=== PATIENT | female | born 1940 | race Caucasian/White ===

== ENCOUNTER 2022-09-18 10:00 | Emergency (ER) | payer MEDICARE, BC, SELFPAY ==
[2022-09-18] VITALS (7 sets, daily range): BP systolic 121–148; BP diastolic 68–83; PULSE 84–100; RESP 15–17; TEMP 37.1–37.6; O2SAT 94–98; BMI 21.4
--- NOTE | 2022-09-18 10:13 | ECG_ITS ---
APPROVED REPORT Exam: Resting ECG HR:107 bpm ECG Measurements Heart Rate 107 AXES MI 175 P 79 QRSd 97 QRS 203 QT 361 T 84 QTc 424 Conclusion SINUS TACHYCARDIA WITH FREQUENT SUPRAVENTRICULAR PREMATURE COMPLEXES LOW QRS VOLTAGE IN EXTREMITY LEADS [QRS DEFLECTION < 0.5 mV IN LIMB LEADS] POSSIBLE RIGHT VENTRICULAR CONDUCTION DELAY [RSR (QR) IN V1/V2] LEFT POSTERIOR FASCICULAR BLOCK [QRS AXIS > 109, INFERIOR Q] ANTEROLATERAL MYOCARDIAL INFARCTION , OF INDETERMINATE AGE [40+ ms Q WAVE IN I/aVL/V3-V6] ABNORMAL ECG UNCONFIRMED REPORT Electronically signed by : Thanh Chris MD 09/18/2022 19:33:52
--- NOTE | 2022-09-18 10:18 | HMH.EDGENADL ---
Discharge Plan Disposition Patient Disposition: Home, Self-Care Referrals Follow up/Referrals: Provider,Referral, [Primary Care Provider] - See instructions Activity Restrictions/Add. Instructions Additional Instructions/Restrictions: Your emergency work-up today did not yield any severe or significant abnormality to warrant further emergency intervention or hospitalization. After your diagnostic tests have been performed it is most likely that you had a viral syndrome secondary to COVID with subsequent dehydration from poor p.o. intake and decreased appetite. Your potassium is very mildly elevated which should be normalized with normal diet. Please return to the emergency department or your primary care doctor as needed. Clinical Impressions Clinical Impression: Acute dehydration, Hypokalemia, Abdominal discomfort, Decrease in appetite, COVID-19 Discharge ED Provider: Christian Rivera General Adult HPI General Chief complaint: Upper Respiratory Infection Stated complaint: Covid+ 2/ loss appetite weakness Time Seen by Provider: 09/18/22 10:18 History of Present Illness HPI narrative: Patient is an 82-year-old female presenting with decreased p.o. intake over the last 2 weeks. She is accompanied by her friend who knows her well and spends a lot of time with her. This patient does not go to the doctor therefore has no known diagnosed medical problems. Her friend states that she normally eats a lot but over the last 2 weeks she has not felt like eating and states that her abdomen has discomfort after eating. She subsequently has had very little to eat over the last 2 weeks and has been increasingly weak. She normally lives at home and takes care of herself. Her friend has been bagging her for the last 3 to 4 days to come into the emergency department. She went to [facility] for 3 days ago where they did a COVID test and she was positive did not do any other interventions including blood work or IV fluids according to her friend. Did not do any abdominal imaging. Patient denies having any respiratory complaints at all during this time. Denies any other viral symptoms. Her only symptom is a little bit of epigastric discomfort and mid abdominal discomfort after eating and decreased p.o. intake. She denies any melena or hematochezia she denies any hematemesis. Denies any fevers or chills urinary symptoms or changes in bowel movements. She states she is exceedingly weak at the moment. Related Data Allergies Allergy/AdvReac Type Severity Reaction Status Date / Time No Known Allergies Allergy Verified 09/18/22 10:19 [facility] Disclaimer: The information contained in this section may have been updated after the patient was seen, as this information can be updated by other users. Social History Smoking Status: Never smoker alcohol intake: never current occupational status: other Travel in the last 8 weeks: None ROS Obtained: Yes All systems reviewed & no additional complaints except as documented Physical Exam General General appearance: alert and in no apparent distress Respiratory Respiratory exam: Present normal lung sounds bilaterally; Absent respiratory distress, wheezes or stridor Cardiovascular Cardiovascular exam: Present regular rate and irregular rhythm Abdominal Exam Abdominal exam: Present soft (Abdomen is soft there is tenderness palpation right upper quadrant midepigastrium as well as periumbilical. No masses felt no rebound or guarding.) Neurological Exam Neurological exam: Present alert and oriented X3 Medical Decision Making Geovani Inquiry Pt receiving controlled substance: No Vital Signs: 09/18/22 10:15 09/18/22 10:10 09/18/22 10:50 Temperature 98.7 F Temperature Source Oral Pulse Rate 100 H 84 Pulse Rate [Right Radial] 90 Respiratory Rate 17 Blood Pressure 143/79 H 146/83 H Blood Pressure [Right Arm] 143/79 H Blood Pressure Mean 91 104 Blood Pressure M
--- NOTE | 2022-09-18 10:23 | PC.NURSE ---
ER AT BEDSIDE
--- NOTE | 2022-09-18 10:25 | CT_ITS ---
FINAL REPORT TECHNIQUE: After the administration of intravenous contrast, axial images were obtained through the abdomen and pelvis by computed tomography. This study was performed with technique to keep radiation doses as low as reasonably achievable, (ALARA). Individualized dose reduction techniques using automated exposure control or adjustment of the MA and/or KV according to the patient's size were employed. CLINICAL HISTORY: mid abd pain, intolerance of po (never goes to dr) FINDINGS: Abdomen: The lung bases demonstrate mild bibasilar atelectasis or scarring. Pectus excavatum deformity is noted. The liver is normal in size and attenuation. There is mild, nonspecific gallbladder wall thickening. The spleen is unremarkable. The adrenals are normal. The pancreas is unremarkable. The kidneys enhance appropriately. There are multiple, bilateral renal cysts. The aorta is normal in caliber. There is no free fluid or adenopathy. Fluid is seen at the level of the umbilicus of uncertain significance. Findings could represent cyst. Pelvis: The appendix is normal. There are several small uterine calcifications likely representing small fibroids. The urinary bladder is unremarkable. There is no free fluid or adenopathy. IMPRESSION: Mild, nonspecific gallbladder wall thickening. Fluid at the level of the umbilicus which could represent a cyst. Uterine calcifications likely representing fibroids. Reviewed, Interpreted and Dictated by Collins Pan III, MD Transcribed by Yoselin Vogt Authenticated and [facility]
[2022-09-18 10:26] LABS: Chloride 99 mmol/L (98-107); Potassium 3.4 mmoL/L (3.5-5.1); Sodium 138 mmol/L (136-145)
[2022-09-18 10:29] LABS: Alanine Aminotransferase 38 U/L (12-78); Albumin Level 4.3 g/dl (3.5-5.0); Albumin/Globulin Ratio 1.4 (1.1-1.8); Alkaline Phosphatase 75 U/L (38-126); Anion Gap 9.4 mEq/L (5-15); Aspartate Amino Transferase 53 U/L (14-36); Bilirubin,Total 0.8 mg/dl (0.2-1.3); Blood Urea Nitrogen 20 mg/dl (7-17); Calcium 8.1 mg/dl (8.4-10.2); Carbon Dioxide 33 mmol/L (22.0-30.0); Creatinine Clearance Estimated 40 mL/min (50-200); Estimated Glomerular Filt Rate 81 ml/min (>60); GFR (African American) 97 ML/MIN (>60); Globulin 3.1 g/dL (1.3-3.2); Glucose 113 mg/dl (74-100); Total Protein,Serum 7.4 g/dl (6.3-8.2)
[2022-09-18 10:31] LABS: Basophils # 0.1 K/mm3 (0-0.2); Basophils % 0.8 % (0.1-2.0); Eosinophils % 0.2 % (0.1-12.0); Hemoglobin 17.4 g/dL (12.2-16.2); Lymphocytes # 0.8 K/mm3 (0.7-4.5); Lymphocytes % 14.2 % (10-50); Mean Corpuscular HGB Conc 32.3 g/dL (31.8-35.4); Mean Corpuscular Hemoglobin 29.1 pg (27.0-31.2); Mean Corpuscular Volume 90.1 fl (81-99); Mean Platelet Volume 9.3 fl (7.4-10.4); Monocytes # 0.5 K/mm3 (0.1-1.0); Neutrophils # 4.3 K/mm3 (1.8-7.8); Neutrophils % 75.8 % (37.0-80.0); Platelet Count 144 K/mm3 (142-424); Red Blood Count 5.99 M/mm3 (4.20-5.40); Red Cell Distribution Width 13.1 % (11.5-17.5); White Blood Count 5.7 K/mm3 (4.8-10.8)
[2022-09-18 10:41] LABS: Creatine Kinase 74 U/L (30-135); Lipase 146 U/L (23-300); Phosphorous 3.6 mg/dl (2.5-4.5)
[2022-09-18 10:42] LABS: Magnesium 2.5 mg/dl (1.6-2.3)
--- NOTE | 2022-09-18 10:45 | PC.NURSE ---
rounded on pt she was cold,gave warm blanket family at bedside
--- NOTE | 2022-09-18 10:58 | PC.NURSE ---
pt at ct via wheelchair
--- NOTE | 2022-09-18 11:06 | PC.NURSE ---
pt arrived to room from ct
[2022-09-18 11:11] LABS: Lactic Acid 1.2 mmol/L (0.7-2.1)
--- NOTE | 2022-09-18 12:43 | PC.NURSE ---
pt needed assisting walking to the restroom, did fine no complaints family at bedside
--- NOTE | 2022-09-18 13:02 | PC.NURSE ---
rounded on pt, drink given to family
[2022-09-19 13:24] LABS: Prealbumin 9 mg/dL (9-32)
== END 2022-09-18 13:23 | disposition home or self-care (01) ==
PROVIDERS: Emergency Provider Student in an Organized Health Care Education/Training Program
DX: U07.1 COVID-19 (principal); E86.0 Dehydration; E87.6 Hypokalemia; R10.9 Unspecified abdominal pain; R63.8 Other symptoms and signs concerning food and fluid intake
CPT/HCPCS: 74177; 80053; 82550; 83605; 83690; 83735; 84100; 84134; 85025; 93005; 96361; 96374; 99285; J2405; Q9967

== ENCOUNTER 2022-09-19 23:12 | Observation (INO) | payer MEDICARE, BC, SELFPAY ==
[2022-09-19 23:14] VITALS: BP 161/91; PULSE 94; RESP 16; TEMP 37.1; O2SAT 95; BMI 21.4
--- NOTE | 2022-09-19 23:40 | PC.NURSE ---
Dr. White at BS
[2022-09-19 23:41] VITALS: BP 156/94; PULSE 100; O2SAT 94
[2022-09-20] VITALS (11 sets, daily range): BP systolic 120–161; BP diastolic 67–81; PULSE 71–106; RESP 16–18; TEMP 36.9–37.3; O2SAT 90–95; BMI 21.7
[2022-09-20 00:28] LABS: Basophils % 0.6 % (0.1-2.0); Eosinophils % 0.6 % (0.1-12.0); Hematocrit 47.2 % (37.0-47.0); Hemoglobin 15.9 g/dL (12.2-16.2); Lymphocytes # 0.6 K/mm3 (0.7-4.5); Mean Corpuscular HGB Conc 33.6 g/dL (31.8-35.4); Mean Corpuscular Hemoglobin 29.3 pg (27.0-31.2); Mean Corpuscular Volume 87.3 fl (81-99); Mean Platelet Volume 9.9 fl (7.4-10.4); Monocytes # 0.6 K/mm3 (0.1-1.0); Monocytes % 9.7 % (1.7-9.3); Neutrophils # 5.1 K/mm3 (1.8-7.8); Neutrophils % 80.2 % (37.0-80.0); Platelet Count 117 K/mm3 (142-424); Red Blood Count 5.41 M/mm3 (4.20-5.40); Red Cell Distribution Width 13.2 % (11.5-17.5); White Blood Count 6.3 K/mm3 (4.8-10.8)
[2022-09-20 00:34] LABS: Alanine Aminotransferase 34 U/L (12-78); Albumin Level 3.7 g/dl (3.5-5.0); Albumin/Globulin Ratio 1.3 (1.1-1.8); Alkaline Phosphatase 72 U/L (38-126); Anion Gap 6.5 mEq/L (5-15); Aspartate Amino Transferase 51 U/L (14-36); Blood Urea Nitrogen 28 mg/dl (7-17); Calcium 8.1 mg/dl (8.4-10.2); Carbon Dioxide 31 mmol/L (22.0-30.0); Chloride 102 mmol/L (98-107); Creatinine Clearance Estimated 40 mL/min (50-200); Estimated Glomerular Filt Rate 69 ml/min (>60); GFR (African American) 84 ML/MIN (>60); Globulin 2.8 g/dL (1.3-3.2); Glucose 120 mg/dl (74-100); Potassium 3.5 mmoL/L (3.5-5.1); Sodium 136 mmol/L (136-145); Total Protein,Serum 6.5 g/dl (6.3-8.2)
[2022-09-20 01:06] LABS: Thyroid Stimulating Hormone 0.29 uIU/mL (0.465-4.68)
--- NOTE | 2022-09-20 01:15 | XR_ITS ---
PROCEDURE INFORMATION: Exam: XR Chest Exam date and time: 09/20/2022 1:46 AM Age: 82 years old Clinical indication: Other: Weakness; Additional info: Covid 3weeks ago, continued symptoms, weakness TECHNIQUE: Imaging protocol: Radiologic exam of the chest. Views: 1 view. COMPARISON: CT ABDOMEN PELVIS W CON 09/18/2022 10:54 AM FINDINGS: Lungs: Linear and patchy opacities in the right lower lobe may represent atelectasis, or pneumonia. Additionally, bibasilar opacities may represent atelectasis, inflammation, or infection. Slight increased pulmonary vascularity and increased interstitial opacities. Findings are nonspecific and may represent subtle pulmonary edema. Atypical infection can give a similar appearance. Pleural spaces: Small amount of fluid within the right transverse fissure can not be excluded. Small layering pleural effusion can not be excluded. Heart/Mediastinum: The cardiac silhouette is enlarged. The mediastinal silhouette is unremarkable. Vasculature: The thoracic aorta is tortuous and atherosclerotic. Bones/joints: There are degenerative changes of the spine. IMPRESSION: 1. Linear and patchy opacities in the lower lobes, right worse than left concerning for atelectasis, inflammation, or pneumonia. Suspected fluid in the right minor fissure versus linear consolidation. Continued attention on follow-up is recommended. 2. Cardiomegaly.
--- NOTE | 2022-09-20 01:27 | HMH.EDGENADL ---
Discharge Plan Disposition Chief Complaint: Weakness Prescriptions Prescriptions: No Action No Known Home Medications Referrals Follow up/Referrals: Provider,MD Lucian [Primary Care Provider] - See instructions Discharge ED Provider: Kaveh White General Adult HPI General Chief complaint: Weakness Stated complaint: weakness,just sick Time Seen by Provider: 09/20/22 00:00 Mode of Arrival: Wheelchair Source of Information: Patient Limitations: No Limitations Description of Symptoms (Recalled from ER Triage Doc. by RN): Pt reports decreased PO intake and feeling unwell for over a week. Pt was evaluated here on 09/17 for same complaints. She denies fevers, N/V/D, abd pain, chest pain, SOA, cough or dizziness. History of Present Illness HPI narrative: Patient presents for evaluation of generalized weakness. Patient seen previously in this hospital for same complaints with negative work-up at that time and deemed appropriate for discharge as she felt improved after IV fluids. Patient has only had 2 green beans and half a cracker since that time as she states everything tastes horribly. Patient reports she is not eating and feels generally weak. She does not regularly see a doctor and has no diagnosed medical conditions. Previous work-up negative. Related Data Home Medications Medication Instructions Recorded Confirmed No Known Home Medications 09/19/22 09/19/22 Allergies Allergy/AdvReac Type Severity Reaction Status Date / Time No Known Allergies Allergy Verified 09/18/22 10:19 [facility] Disclaimer: The information contained in this section may have been updated after the patient was seen, as this information can be updated by other users. Social History (Updated 09/18/22 @ 13:06 by Micki Rivera MD) Smoking Status: Never smoker alcohol intake: never current occupational status: other Travel in the last 8 weeks: None ROS Obtained: Yes Systems reviewed as appropriate & no additional complaints except as documented Physical Exam General General appearance: alert and in no apparent distress Head Head exam: atraumatic and normocephalic Respiratory Respiratory exam: Present normal lung sounds bilaterally Cardiovascular Cardiovascular exam: Present regular rate and normal rhythm Neurological Exam Neurological exam: Present alert and oriented X3 Medical Decision Making Geovani Inquiry Pt receiving controlled substance: No Vital Signs: 09/19/22 23:14 09/20/22 01:34 09/19/22 23:41 Temperature 98.7 F Temperature Source Oral Pulse Rate 100 H Pulse Rate [Right Radial] 94 H Respiratory Rate 16 Blood Pressure 156/94 H Blood Pressure [Right Arm] 161/91 H Blood Pressure Mean [Right Arm] 114 Blood Pressure Source [Right Arm] Automatic Cuff Blood Pressure Position [Right Arm] Supine 02 Sat by Pulse Oximetry 95 94 L Oxygen Delivery Method Room Air Room Air Room Air 09/20/22 00:00 09/20/22 00:30 09/20/22 01:00 Temperature Temperature Source Pulse Rate 86 81 82 Pulse Rate [Right Radial] Respiratory Rate Blood Pressure 158/81 H 152/72 H 139/76 Blood Pressure [Right Arm] Blood Pressure Mean [Right Arm] Blood Pressure Source [Right Arm] Blood Pressure Position [Right Arm] 02 Sat by Pulse Oximetry 94 L 93 L 92 L Oxygen Delivery Method Room Air Room Air Room Air 09/20/22 01:30 Temperature Temperature Source Pulse Rate 106 H Pulse Rate [Right Radial] Respiratory Rate Blood Pressure 161/72 H Blood Pressure [Right Arm] Blood Pressure Mean [Right Arm] Blood Pressure Source [Right Arm] Blood Pressure Position [Right Arm] 02 Sat by Pulse Oximetry 95 Oxygen Delivery Method Room Air Lab Data Lab Results 09/19/22 00:17: WBC 6.3, RBC 5.41 H, Hgb 15.9, Hct 47.2 H, MCV 87.3, MCH 29.3, MCHC 33.6, RDW 13.2, Plt Count 117 L, MPV 9.9, Neut % (Auto) 80.2 H, Lymph % (Auto) 9.0 L, [place] % (Auto) 9.7 H, Eos % (Auto)
[2022-09-20 02:24] LABS: Influenza A, PCR Not Detected (NotDetected); Influenza B, PCR Not Detected (NotDetected)
--- NOTE | 2022-09-20 02:42 | PC.NURSE ---
Pt up to bathroom per 2 person assist and with use of wheelchair
[2022-09-20 02:43] LABS: Microscopic, Urine URINE MICROSCOPIC (MICROSCOPIC)
--- NOTE | 2022-09-20 02:43 | PC.NURSE ---
Hospitalist, Emiliano, at BS
--- NOTE | 2022-09-20 02:44 | PC.NURSE ---
mail handlers supervisor called for bed assignment
[2022-09-20 02:47] LABS: Appearance,Urine CLEAR (Clear); Blood, Urine 1+ (Negative); Color,Urine AMBER (Yellow); Glucose,Urine (UA) Negative (Negative); Ketones,Urine 2+ (Negative); Leukocyte Esterase,Urine Negative (Negative); Nitrate,Urine Negative (Negative); Protein,Urine 2+ (Negative); Specific Gravity, Urine >= 1.030 (1.005-1.030)
[2022-09-20 02:47] LABS: Coronavirus 19, PCR Detected (NotDetected)
--- NOTE | 2022-09-20 02:48 | EXP.HP ---
History of Present Illness *Admission Date: 09/20/22 *Reason for visit:: Weakness, poor oral intake, cough *History of present illness: Ms. Garvey is a 82-year-old female with no past medical history and not on any prescription medications. She presents to [facility] on 09/20 due to continued weakness, inability to eat and cough following covid that was diagnosed 3 weeks ago. She was seen previously in the ER with the same symptoms on 09/17 and sent home after receiving iv fluids, she reports that she has continued to become weak and has had no significant oral intake, she lives alone and is brought in by a friend. In the ER, CBC and CMP were unremarkable. Cxray was concerning per ER physician for a right lobe infiltrate. She was given Rocephin and Azithromycin. The patient will be admitted with CAP and Failure to thrive. She was started on antibiotics and PT/OT will be consulted to see. The plan of care was discussed with the patient and friend at bedside. Both verbalized understanding and agreement with the plan of care. [facility] Disclaimer: The information contained in this section may have been updated after the patient was seen, as this information can be updated by other users. Medical History (Updated 09/20/22 @ 11:16 by Aung Burns MD) Cataracts, bilateral COVID-19 Surgical History (Updated 09/20/22 @ 04:28 by Anika Mckeon RN) Cornea replaced by transplant Social History (Updated 09/20/22 @ 04:28 by Anika Mckeon RN) Smoking Status: Never smoker alcohol intake: never current occupational status: retired and other Travel in the last 8 weeks: None adopted: No caregiver/support person: Yes (TONNY LEWIS) foster care: No household members: none housing: house lives independently: Yes marital status: single number of children: 0 number of grandchildren: 0 education level: high school service: No assisted: No current occupational exposures/hazards: No pets and animals: No leisure activities: reading sexually active: No Review of Systems Review of Systems Review of systems:: pertinent systems reviewed and negative unless documented below Constitutional Constitutional: Reports fatigue and Reports weakness Eyes Eyes: Reports system reviewed and no additional complaints, except as documented ENT Ears, Nose, Mouth, and Throat: Reports system reviewed and no additional complaints, except as documented *Cardiovascular Cardiovascular: Reports system reviewed and no additional complaints, except as documented *Respiratory Respiratory: Reports chest congestion and Reports cough *Gastrointestinal Gastrointestinal: Reports early satiety *Genitourinary Genitourinary: Reports system reviewed and no additional complaints, except as documented *Musculoskeletal Musculoskeletal: Reports system reviewed and no additional complaints, except as documented Integumentary/Breasts Skin/Breast: Reports system reviewed and no additional complaints, except as documented *Neurologic Neurologic: Reports system reviewed and no additional complaints, except as documented and Reports weakness Psychiatric Psychiatric: Reports system reviewed and no additional complaints, except as documented Endocrine Endocrine: Reports fatigue Hematologic/Lymphatic Hematologic/Lymphatic: Reports system reviewed and no additional complaints, except as documented Allergic/Immunologic Allergic/Immunologic: Reports system reviewed and no additional complaints, except as documented Meds Home Medications and Allergies Home Medications Medication Instructions Recorded Confirmed Type No Known Home Medications 09/19/22 09/19/22 History New Prescriptions to Start Prescriptions: Allergies Allergy/AdvReac Type Severity Reaction Status Date / Time No Known Allergies Allergy Verified 09/18/22 10:19 Exam Data for Last 24 hours Vital signs and L
[2022-09-20 03:03] LABS: Bilirubin,Urine 2+ (Negative)
[2022-09-20 03:04] LABS: Bacteria,Urine 1+ /lpf; WBC,Urine Occasional #/hpf (0-3)
--- NOTE | 2022-09-20 03:14 | PC.NURSE ---
Report called to Lelo GARCIA on 2nd floor
--- NOTE | 2022-09-20 03:41 | PC.NURSE ---
RECEIVED PHONE REPORT FROM ISMAEL Chakraborty RN/ED AT 0310. PATIENT ARRIVED TO THE FLOOR AT 0340 AND ADMITTED TO NEGATIVE PRESSURE ROOM FOR COVID +. DIAGNOSIS FAILURE TO THRIVE/COVID PNEUMONIA.
--- NOTE | 2022-09-20 03:41 | PC.NURSE ---
Pt arrived to floor via stretcher at this time
--- NOTE | 2022-09-20 05:32 | PC.NURSE ---
PATIENT RESTING IN BED AT THIS TIME. DENIES PAIN. NO N/V SINCE ADMISSION. OCASSIONAL DRY COUGH NOTED. REPORTS SOME SOA ON EXERTION. HAS LITTLE TO NO APPETITE. HAS LOST MOST OF SMELL AND TASTE.
--- NOTE | 2022-09-20 07:27 | PC.NURSE ---
I ambulated pt to Bathroom. She was a stand by assist. complains of generalized weakness, but gait was steady. Denies any SOA. reports poor appetite and general malaise.
[2022-09-20 08:49] LABS: MANUAL DIFFERENTIAL MANUAL DIFFERENTIAL (MANUAL DIFF)
[2022-09-20 08:52] LABS: Basophils % 0.5 % (0.1-2.0); Eosinophils % 0.3 % (0.1-12.0); Hematocrit 43.1 % (37.0-47.0); Hemoglobin 14.3 g/dL (12.2-16.2); Lymphocytes # 0.4 K/mm3 (0.7-4.5); Lymphocytes % 9.6 % (10-50); Mean Corpuscular HGB Conc 33.2 g/dL (31.8-35.4); Mean Corpuscular Hemoglobin 28.9 pg (27.0-31.2); Mean Platelet Volume 10.2 fl (7.4-10.4); Monocytes # 0.4 K/mm3 (0.1-1.0); Monocytes % 8.9 % (1.7-9.3); Neutrophils # 3.2 K/mm3 (1.8-7.8); Neutrophils % 80.7 % (37.0-80.0); Platelet Count 113 K/mm3 (142-424); Red Blood Count 4.96 M/mm3 (4.20-5.40); Red Cell Distribution Width 13.1 % (11.5-17.5)
[2022-09-20 08:59] LABS: Chloride 107 mmol/L (98-107); Lymphocytes % 5 % (10-50); Monocytes % 3 % (2-9); Neutrophils % 92 % (42-76); Platelet Estimate Slight Decrease; Potassium 3.3 mmoL/L (3.5-5.1); RBC Morphology Normal; Sodium 138 mmol/L (136-145); Total Cells Counted 100
[2022-09-20 09:01] LABS: Blood Urea Nitrogen 25 mg/dl (7-17); Creatinine Clearance Estimated 41 mL/min (50-200); Estimated Glomerular Filt Rate 96 ml/min (>60); GFR (African American) 116 ML/MIN (>60)
[2022-09-20 09:02] LABS: Anion Gap 7.3 mEq/L (5-15); Calcium 7.2 mg/dl (8.4-10.2); Carbon Dioxide 27 mmol/L (22.0-30.0); Glucose 154 mg/dl (74-100)
--- NOTE | 2022-09-20 12:37 | PC.NURSE ---
encouraged pt to cough to produce sputum. pt denies any cough
--- NOTE | 2022-09-20 13:32 | HMH.PTEV ---
Physical Therapy Evaluation Rehab PT IP Evaluation Start: 09/20/22 02:48 Freq: ONCE Status: Active Protocol: Document 09/20/22 13:13 PDESEROUX (Rec: 09/20/22 13:32 PDESEROUX [id number]) Subjective/History History History Pt. is a 82 year old female who presents to [facility] 2nd floor Inpatient on the morning of 09/20/22 w/ c/o acute onset and constant mobility deficits secondary to increased reports of weakness . Pt. reports being diagnosed w/ COVID 3 weeks ago where, in the meantime, vocalized having an increased loss of appetite within those 3 weeks that led to the complaint of weakness causing impaired mobility. Pt.'s niece was present in room at the time of the initial evaluation. Pt.'s niece vocalized helping pt. at home secondary to weakness and reports being able to live w/ pt. to provide care PRN. Pt. reports IND. w/ ADLs prior to admittance to [facility]. Pt . reports previously living alone in her trailer. Pt. denies using any durable medical equipment w/ ADLs, prior to admittance. PMH includes bilateral cataracts and COVID. Subjective Subjective Pt. presents to [facility] 2nd floor Inpatient for generalized weakness secondary to COVID 3 weeks ago. Upon entry to pt.'s room after vocalized consent, pt. was found sitting upright in chair w/ niece seated upright in chair adjacent to pt. Pt. was left seated upright in chair adjacent to niece w/ call light in reach. Rehab PT IP Eval Objective Appearance Patient Behavior Appropriate,Cooperative, Anxious,Fatigued Patient Orientation Person,Place,Name Difficulty following instructions none Speech Pattern
--- NOTE | 2022-09-20 13:43 | EXP.DC.SUM ---
General Admission date:: 09/20/22 Discharge date: 09/20/22 HPI HPI HPI: Ms. Garvey is a 82-year-old female with no past medical history and not on any prescription medications. She presents to [facility] on 09/20 due to continued weakness, inability to eat and cough following covid that was diagnosed 3 weeks ago. She was seen previously in the ER with the same symptoms on 09/17 and sent home after receiving iv fluids, she reports that she has continued to become weak and has had no significant oral intake, she lives alone and is brought in by a friend. In the ER, CBC and CMP were unremarkable. Cxray was concerning per ER physician for a right lobe infiltrate. She was given Rocephin and Azithromycin. The patient will be admitted with CAP and Failure to thrive. She was started on antibiotics and PT/OT will be consulted to see. The plan of care was discussed with the patient and friend at bedside. Both verbalized understanding and agreement with the plan of care. Hospital Course Hospital Course Hospital Course: 82-year-old female with no past medical history, not on any prescription medications presents with increasing fatigue, weakness, poor oral intake and cough since being diagnosed with covid 3 weeks ago. Chest imaging concerning for pneumonia. Admitted for further management. Problems addressed as follows: - Covid Pneumonia Originally positive for COVID 3 weeks ago. Still testing positive however appears fairly asymptomatic other than fatigue. Cxray obtained in the ER with findings of consolidation. Started empirically on Rocephin and azithromycin. Tolerated well. Had no white cell count. No fever. No oxygen requirement during admission. Transition to oral antibiotics to complete empiric short course for pneumonia. Tolerating improved p.o. intake by morning. PT evaluated and patient is independent and safe to go home with niece. Sputum culture still pending at time of discharge. - Failure to thrive Reports food tastes horrible since covid. We will improved p.o. intake after admission. Tolerated a quarter of her breakfast and about half her lunch tray. Drinking well. Has not had a bowel movement in 2 to 3 days, given a dose of MiraLAX prior to discharge. Denies any nausea or vomiting. Evaluated by therapy as above. Stable for discharge home with her niece. No assistive devices needed. Patient also noted to have some thrombocytopenia and hypokalemia.? Potassium replaced IV while admitted. Would benefit from repeat labs to monitor thrombocytopenia. Appears stable during admission. No active signs of bleeding Stable for discharge home with family, recommend reevaluation in 1 to 2 weeks with PCP. Exam Data for Last 24 hours Vital signs and Labs for Last 24 Hours: Temp Pulse Resp BP Pulse Ox 99.1 F 80 18 120/76 93 L 09/20/22 12:00 09/20/22 12:00 09/20/22 12:00 09/20/22 12:00 09/20/22 12:00 Laboratory Results - last 24 hr 09/19/22 00:17: WBC 6.3, RBC 5.41 H, Hgb 15.9, Hct 47.2 H, MCV 87.3, MCH 29.3, MCHC 33.6, RDW 13.2, Plt Count 117 L, MPV 9.9, Neut % (Auto) 80.2 H, Lymph % (Auto) 9.0 L, [place] % (Auto) 9.7 H, Eos % (Auto) 0.6, Baso % (Auto) 0.6, Neut # (Auto) 5.1, Lymph # (Auto) 0.6 L, [place] # (Auto) 0.6, Eos # (Auto) 0.0, Baso # (Auto) 0.0 09/19/22 00:17: Sodium 136, Potassium 3.5, Chloride 102, Carbon Dioxide 31 H, Anion Gap 6.5, BUN 28 H D, Creatinine 0.80, Estimated Creat Clear 40, Estimated GFR 69, Est GFR ( Amer) 84, Glucose 120 H, Calcium 8.1 L, Total Bilirubin 1.0, AST 51 H, ALT 34, Alkaline Phosphatase 72, Total Protein 6.5, Albumin 3.7 D, Globulin 2.8, Albumin/Globulin Ratio 1.3, TSH 0.29 L 09/19/22 02:40: Urine Color Ne, Urine Appearance Clear, Urine pH 6.0, Ur Specific [place] >= 1.030, Urine Protein 2+, Urine Glucose (UA) Negative, Urine Ketones 2+, Urine Blood 1+, Urine Nitrate Negative, Urine Bilirubin 2+ A, Urine Urobilinogen 2.0, Ur Leukocyte Esterase N
--- NOTE | 2022-09-20 14:08 | HMH.PHAINT1 ---
Pharmacy Intervention Comments: DISCHARGE MEDICATION COUNSELING PROVIDED. DISCUSSED THE FOLLOWING NEW MEDICATIONS: -AZITHROMYCIN (ANTIBIOTIC, DAILY, TAKE WITH FOOD, N/V/D POSSIBLE) -CEFDINIR (ANTIBIOTIC, TWICE DAILY, TAKE WITH FOOD, MAY CAUSE N/V/D) -ZOFRAN (FOR N/V, EVERY 8 HOURS NEEDED, ODT FORM SO PLACE ON TONGUE AND LET DISSOLVE, HEADACHE AND CONSTIPATION POSSIBLE) PATIENT VERBALIZED NO QUESTIONS AT THIS TIME.
[2022-09-21 07:19] LABS: Prealbumin 8 mg/dL (9-32)
== END 2022-09-20 15:30 | disposition home or self-care (01) ==
LOC: ER 09-20 00:25 → 2ND 09-20 04:01
PROVIDERS: Admitting Provider Internal Medicine Adolescent Medicine; Emergency Provider Emergency Medicine; Visit Provider Internal Medicine Adolescent Medicine
DX: U07.1 COVID-19 (principal); J12.82 Pneumonia due to coronavirus disease 2019; E87.6 Hypokalemia; D69.6 Thrombocytopenia, unspecified; Z79.899 Other long term (current) drug therapy
CPT/HCPCS: G0378; 36415; 71045; 80048; 80053; 81001; 84134; 84443; 85007; 85014; 85018; 85025; 85048; 85049; 97161; 99285; C9803; J0456; J0696; J2405; U0003; U0005

== ENCOUNTER 2022-09-21 12:55 | Observation (INO) | payer MEDICARE, BC, SELFPAY ==
[2022-09-21] VITALS (9 sets, daily range): BP systolic 109–137; BP diastolic 66–77; PULSE 64–82; RESP 16–20; TEMP 36.4–37; O2SAT 90–94; BMI 21.4; BMI 21.9
--- NOTE | 2022-09-21 13:09 | PC.NURSE ---
Warm blanket provided.
--- NOTE | 2022-09-21 13:47 | PC.NURSE ---
PREETI ESPAÑA at
--- NOTE | 2022-09-21 13:54 | XR_ITS ---
PROCEDURE INFORMATION: Exam: XR Chest Exam date and time: 09/21/2022 1:57 PM Age: 82 years old Clinical indication: Condition or disease; Other: Patient discharged within two days from this facility after having pneumonia. Patient HX: Patient discharged 2 days ago after having pneumonia. Not eating or drinking. ; Additional info: Chest pain TECHNIQUE: Imaging protocol: Radiologic exam of the chest. Views: 2 views. COMPARISON: CR XR CHEST PORTABLE 09/20/2022 1:46 AM FINDINGS: Lungs: Patchy interstitial and alveolar airspace disease within the right lung and in the left mid lung and left lung base. Minimal change overall. Likely infectious. Pleural spaces: Unremarkable. No pleural effusion. No pneumothorax. Heart/Mediastinum: Unremarkable. No cardiomegaly. Bones/joints: Unremarkable. IMPRESSION: Patchy interstitial and alveolar airspace disease within the right lung and in the left mid lung and left lung base. Minimal change overall. Likely infectious.
--- NOTE | 2022-09-21 13:55 | HMH.EDGENADL ---
Discharge Plan Disposition Patient Disposition: Admitted as Observation Condition: Fair Chief Complaint: Nausea/Vomiting/Diarrhea Prescriptions Prescriptions: No Action ondansetron 4 mg tablet,disintegrating 4 mg PO Q8H PRN (Reason: nausea and vomiting) 3 Days Qty: 9 0RF cefdinir 300 mg capsule 300 mg PO BID 5 Days Qty: 10 0RF azithromycin 250 mg tablet 250 mg PO DAILY 4 Days Qty: 4 0RF Clinical Impressions Clinical Impression: Pneumonia, Nausea & vomiting, Weakness Instructions Patient Instructions: DI for Diarrhea and Traveler's Diarrhea -- Adult, DI for Diarrhea and Traveler's Diarrhea -- Child, DI for Nausea -- Adult, DI for Nausea -- Child Discharge ED Provider: Raymundo Lugo General Adult HPI General Chief complaint: Nausea/Vomiting/Diarrhea Stated complaint: nausea, weakness, not eating Time Seen by Provider: 09/21/22 13:40 Mode of Arrival: Wheelchair Source of Information: Patient and Relative Limitations: No Limitations Description of Symptoms (Recalled from ER Triage Doc. by RN): Patient discharged yesterday am w/COVID (x 3 wks) and pneumonia. Pt placed on Cefdinir and Azithromycin. Pt tolerated PO yesterday am prior to discharge and when she got home she was able to tolerate PO until last night, n/v returned. 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 Denies pain. History of Present Illness HPI narrative: History obtained from patient and niece. She says she was just discharged from the hospital yesterday, diagnosed with pneumonia. States that she felt so much better when she awakened yesterday morning but then after going home has not been able to eat or drink. She took Zofran without improvement. She is weak and not able to ambulate on her own. She has not fallen. Her urine is dark and she is urinating less than usual. She feels like she needs something to build me back up . Denies any pain. Denies fever. Denies shortness of breath. Denies cough. Denies diarrhea. Patient lives by herself, but has been staying with her niece since she got ill. She does not have a primary care provider, she has no significant medical problems. Related Data Previous Rx's Medication Instructions Recorded azithromycin 250 mg tablet 250 mg PO DAILY 4 days #4 tabs 09/20/22 cefdinir 300 mg capsule 300 mg PO BID 5 days #10 caps 09/20/22 ondansetron 4 mg disintegrating 4 mg PO Q8H PRN nausea and 09/20/22 tablet vomiting 3 days #9 tabs Allergies Allergy/AdvReac Type Severity Reaction Status Date / Time No Known Allergies Allergy Verified 09/18/22 10:19 [facility] Disclaimer: The information contained in this section may have been updated after the patient was seen, as this information can be updated by other users. Medical History (Updated 09/21/22 @ 15:43 by Raymundo Lugo MD) Cataracts, bilateral COVID-19 Surgical History (Updated 09/20/22 @ 04:28 by Anika Mckeon RN) Cornea replaced by transplant Social History (Updated 09/20/22 @ 04:28 by Anika Mckeon RN) Smoking Status: Never smoker alcohol intake: never current occupational status: retired and other Travel in the last 8 weeks: None adopted: No caregiver/support person: Yes (TONNY LEWIS) foster care: No household members: none housing: house lives independently: Yes marital status: single number of children: 0 number of grandchildren: 0 education level: high school service: No fci: No current occupational exposures/hazards: No pets and animals: No leisure activities: reading sexually active: No ROS Obtained: Yes Systems reviewed as appropriate & no additional complaints except as documented Constitutional Constitutional: Reports fatigue, Denies fever(s), Denies headache(s), Reports poor appetite, Reports malaise and Reports weakness ENT Ears, Nose, Mouth, and Throat: Reports disequilibrium, Denies headache(s), Denies nasal discharge and Denies sore th
--- NOTE | 2022-09-21 14:00 | PC.NURSE ---
Zofran 4mg IV and NS 1L administered.
[2022-09-21 14:06] LABS: Basophils % 0.3 % (0.1-2.0); Hematocrit 46.2 % (37.0-47.0); Hemoglobin 15.8 g/dL (12.2-16.2); Lymphocytes # 0.6 K/mm3 (0.7-4.5); Lymphocytes % 6.8 % (10-50); Mean Corpuscular HGB Conc 34.2 g/dL (31.8-35.4); Mean Corpuscular Hemoglobin 29.5 pg (27.0-31.2); Mean Corpuscular Volume 86.1 fl (81-99); Mean Platelet Volume 9.7 fl (7.4-10.4); Monocytes # 0.8 K/mm3 (0.1-1.0); Monocytes % 8.2 % (1.7-9.3); Neutrophils # 7.8 K/mm3 (1.8-7.8); Neutrophils % 84.7 % (37.0-80.0); Platelet Count 136 K/mm3 (142-424); Red Blood Count 5.36 M/mm3 (4.20-5.40); Red Cell Distribution Width 12.9 % (11.5-17.5); White Blood Count 9.3 K/mm3 (4.8-10.8)
[2022-09-21 14:07] LABS: Chloride 102 mmol/L (98-107); Potassium 3.5 mmoL/L (3.5-5.1); Sodium 135 mmol/L (136-145)
[2022-09-21 14:10] LABS: Alanine Aminotransferase 32 U/L (12-78); Albumin Level 3.4 g/dl (3.5-5.0); Albumin/Globulin Ratio 1.2 (1.1-1.8); Alkaline Phosphatase 63 U/L (38-126); Anion Gap 4.5 mEq/L (5-15); Aspartate Amino Transferase 40 U/L (14-36); Bilirubin,Total 0.8 mg/dl (0.2-1.3); Blood Urea Nitrogen 25 mg/dl (7-17); Carbon Dioxide 32 mmol/L (22.0-30.0); Creatinine Clearance Estimated 40 mL/min (50-200); Estimated Glomerular Filt Rate 81 ml/min (>60); GFR (African American) 97 ML/MIN (>60); Globulin 2.9 g/dL (1.3-3.2); Total Protein,Serum 6.3 g/dl (6.3-8.2)
[2022-09-21 14:11] LABS: Calcium 7.8 mg/dl (8.4-10.2); Glucose 124 mg/dl (74-100)
--- NOTE | 2022-09-21 14:18 | ECG_ITS ---
APPROVED REPORT Exam: Resting ECG HR:78 bpm ECG Measurements Heart Rate 78 AXES NV 191 P 44 QRSd 64 QRS 94 QT 373 T 75 QTc 407 Conclusion BORDERLINE RIGHT AXIS DEVIATION Late R wave progression Old anteolateral changes UNCONFIRMED REPORT Electronically signed by : Thanh Chris MD 09/22/2022 19:26:35
[2022-09-21 14:32] LABS: Troponin I < 0.01 ng/ml (0.00-0.034)
[2022-09-21 14:53] LABS: Microscopic, Urine URINE MICROSCOPIC (MICROSCOPIC)
[2022-09-21 15:00] LABS: Appearance,Urine CLEAR (Clear); Blood, Urine 1+ (Negative); Color,Urine YELLOW (Yellow); Glucose,Urine (UA) Negative (Negative); Ketones,Urine 1+ (Negative); Leukocyte Esterase,Urine Negative (Negative); Nitrate,Urine Negative (Negative); Protein,Urine 1+ (Negative); Specific Gravity, Urine 1.025 (1.005-1.030)
[2022-09-21 15:06] LABS: Bilirubin,Urine Negative (Negative)
[2022-09-21 15:10] LABS: NT Pro Brain Natriuretic Pep. 1240 pg/mL (0-450)
[2022-09-21 15:21] LABS: Bacteria,Urine Trace /lpf; Mucus,Urine 1+ /lpf; WBC,Urine Occasional #/hpf (0-3)
--- NOTE | 2022-09-21 15:27 | PC.NURSE ---
MD notified of increased nausea. VO for repeated Zofran 4mg IV. MD to bedside to reasses.
--- NOTE | 2022-09-21 15:35 | PC.NURSE ---
Additional Zofran administered per MD VO. Family remains at the bedside. No further complaints at this time.
--- NOTE | 2022-09-21 15:42 | PC.NURSE ---
dr. mcqueen reports is going to come down and see pt
[2022-09-21 15:43] LABS: Influenza A, PCR Not Detected (NotDetected); Influenza B, PCR Not Detected (NotDetected)
--- NOTE | 2022-09-21 15:49 | PC.NURSE ---
dr. mcqueen at BS
--- NOTE | 2022-09-21 16:00 | PC.NURSE ---
notified warehouse assembly worker of admission
--- NOTE | 2022-09-21 16:12 | EXP.HP ---
History of Present Illness *Admission Date: 09/21/22 *Reason for visit:: weakness, nausea, failure to thrive *History of present illness: Ms. Garvey is a 82-year-old female with no past medical history and not on any prescription medications.? Was recently admitted and discharged yesterday for weakness and poor p.o. intake after being diagnosed with COVID 3 weeks ago. She was previously in the ER with the same symptoms on 09/17. Responded well last admission to IV fluids, was tolerating p.o. intake. PT evaluated her yesterday and she was able to stand with minimal assist and ambulate without assistive devices, just holding a hand. Niece who is with her felt comfortable taking her home. Patient felt better and was discharged home in stable condition. She Timmy presents to the ER today with inability to eat since being home. Complaining of persistent nausea. Still has not had a bowel movement (now 5 days). Denies fever, increased cough, confusion, chest pain or shortness of breath. Medicine consulted for admission for failure to thrive and further evaluation for possible placement. Of note, was able to take her oral antibiotics, but has not been able to take much else by mouth. Just states she feels sick [facility] Disclaimer: The information contained in this section may have been updated after the patient was seen, as this information can be updated by other users. Medical History Cataracts, bilateral COVID-19 Surgical History Cornea replaced by transplant Social History (Updated 09/21/22 @ 16:30 by Shobha Roger RN) Smoking Status: Never smoker alcohol intake: never current occupational status: retired and other Travel in the last 8 weeks: None adopted: No caregiver/support person: Yes (TONNY LEWIS) foster care: No household members: none housing: house lives independently: Yes marital status: single number of children: 0 number of grandchildren: 0 education level: high school service: No senior living: No current occupational exposures/hazards: No pets and animals: No leisure activities: reading sexually active: No Review of Systems Review of Systems Review of systems (narrative): 14 point review of systems performed, pertinent positives and negatives as per HPI Constitutional Constitutional: Denies headache(s) and Reports weakness ENT Ears, Nose, Mouth, and Throat: Reports disequilibrium and Denies headache(s) *Musculoskeletal Musculoskeletal: Denies numbness *Neurologic Neurologic: Reports disequilibrium, Denies localized weakness, Denies headache(s), Denies numbness and Reports weakness Meds Home Medications and Allergies Home Medications Medication Instructions Recorded Confirmed Type ondansetron 4 mg disintegrating 4 mg PO Q8H PRN nausea and 09/20/22 09/21/22 Rx tablet vomiting 3 days #9 tabs azithromycin 250 mg tablet 250 mg PO DAILY PNA 09/21/22 09/21/22 History cefdinir 300 mg capsule 300 mg PO BID PNA 09/21/22 09/21/22 History New Prescriptions to Start Prescriptions: Allergies Allergy/AdvReac Type Severity Reaction Status Date / Time No Known Allergies Allergy Verified 09/18/22 10:19 Exam Data for Last 24 hours Vital signs and Labs for Last 24 Hours: Temp Pulse Resp BP Pulse Ox 97.5 F L 79 20 109/66 L 93 L 09/21/22 13:05 09/21/22 15:30 09/21/22 14:00 09/21/22 15:30 09/21/22 15:30 Laboratory Results - last 24 hr 09/21/22 13:05: Sodium 135 L, Potassium 3.5, Chloride 102, Carbon Dioxide 32 H, Anion Gap 4.5 L, BUN 25 H, Creatinine 0.70, Estimated Creat Clear 40, Estimated GFR 81, Est GFR ( Amer) 97, Glucose 124 H, Calcium 7.8 L, Total Bilirubin 0.8, AST 40 H, ALT 32, Alkaline Phosphatase 63, Troponin I < 0.01, Total Protein 6.3, Albumin 3.4 L, Globulin 2.9, Albumin/Globulin Ratio 1.2
--- NOTE | 2022-09-21 16:26 | PC.NURSE ---
Report provided to JOSE Alaniz
[2022-09-21 16:33] LABS: Coronavirus 19, PCR Detected (NotDetected)
--- NOTE | 2022-09-21 16:46 | PC.NURSE ---
Pt arrived to the floor at this time via w/c
[2022-09-22] VITALS: BP 131/73; PULSE 73; RESP 18; TEMP 37.2; O2SAT 94
[2022-09-22 04:00] VITALS: BP 129/68; PULSE 82; RESP 18; TEMP 36.9; O2SAT 92; BMI 23.3
--- NOTE | 2022-09-22 04:48 | PC.NURSE ---
pt rested through the night. pt states she just feels sick. no pain anywhere, just feels weak. stable on room air. vss. no episodes of n/v. niece at bedside. bed alarm on.
[2022-09-22 06:47] LABS: Lymphocytes # 0.8 K/mm3 (0.7-4.5); Monocytes # 0.6 K/mm3 (0.1-1.0); Red Blood Count 4.65 M/mm3 (4.20-5.40)
[2022-09-22 06:48] LABS: Chloride 106 mmol/L (98-107)
[2022-09-22 06:49] LABS: Sodium 137 mmol/L (136-145)
[2022-09-22 06:51] LABS: Alanine Aminotransferase 21 U/L (12-78); Albumin Level 2.6 g/dl (3.5-5.0); Alkaline Phosphatase 49 U/L (38-126); Anion Gap 3.8 mEq/L (5-15); Aspartate Amino Transferase 29 U/L (14-36); Bilirubin,Total 0.6 mg/dl (0.2-1.3); Blood Urea Nitrogen 19 mg/dl (7-17); Calcium 6.9 mg/dl (8.4-10.2); Carbon Dioxide 30 mmol/L (22.0-30.0); Creatinine Clearance Estimated 44 mL/min (50-200); Estimated Glomerular Filt Rate 96 ml/min (>60); GFR (African American) 116 ML/MIN (>60); Globulin 2.5 g/dL (1.3-3.2); Glucose 87 mg/dl (74-100); Total Protein,Serum 5.1 g/dl (6.3-8.2)
[2022-09-22 06:52] LABS: Magnesium 2.4 mg/dl (1.6-2.3)
[2022-09-22 06:58] LABS: Basophils % 0.5 % (0.1-2.0); Eosinophils % 0.3 % (0.1-12.0); Hematocrit 40.8 % (37.0-47.0); Lymphocytes % 15.2 % (10-50); Mean Corpuscular HGB Conc 32.8 g/dL (31.8-35.4); Mean Corpuscular Hemoglobin 28.8 pg (27.0-31.2); Mean Corpuscular Volume 87.9 fl (81-99); Mean Platelet Volume 9.4 fl (7.4-10.4); Monocytes % 11.4 % (1.7-9.3); Neutrophils # 3.7 K/mm3 (1.8-7.8); Neutrophils % 72.6 % (37.0-80.0); Platelet Count 122 K/mm3 (142-424); White Blood Count 5.1 K/mm3 (4.8-10.8)
[2022-09-22 06:59] LABS: Hemoglobin 13.4 g/dL (12.2-16.2)
--- NOTE | 2022-09-22 07:05 | HMH.PHAINT1 ---
Pharmacy Intervention Comments: Medication reconciliation completed using external fill history and list from previous discharge summary (09/20/22)
[2022-09-22 07:11] LABS: Potassium 2.8 mmoL/L (3.5-5.1)
[2022-09-22 07:13] VITALS: BP 156/74; PULSE 79; RESP 17; TEMP 37.1; O2SAT 90
--- NOTE | 2022-09-22 07:18 | PC.NURSE ---
notified of critical k 2.8.
--- NOTE | 2022-09-22 07:18 | EXP.ACUTE.PN ---
Subjective *Date: 09/22/22 *Time: 07:18 Medical Exam Vital signs and Labs for Last 24 Hours: Vital Signs Temp Pulse Pulse Resp BP BP Pulse Ox 09/22/22 07:13 98.8 F 79 17 156/74 H 90 L 09/22/22 04:00 98.4 F 82 18 129/68 92 L 09/22/22 00:00 99.0 F 73 18 131/73 94 L 09/21/22 19:59 98.6 F 79 18 134/70 92 L 09/21/22 16:46 97.5 F L 64 16 130/76 09/21/22 16:39 97.5 F L 77 17 130/71 94 L 09/21/22 15:30 79 109/66 L 93 L 09/21/22 15:00 70 129/70 92 L 09/21/22 14:30 64 127/74 92 L 09/21/22 14:00 72 20 124/67 94 L 09/21/22 13:30 81 118/71 92 L 09/21/22 13:05 97.5 F L 82 16 137/77 90 L Intake and Output 09/21/22 09/21/22 09/22/22 15:59 23:59 07:59 Intake Total 0 / 0 240 / 240 Output Total 0 / 0 0 / 0 Balance 0 / 0 240 / 240 Intake: Intake, Oral Amount 0 / 0 240 / 240 Output: Output, Urine Amount 0 / 0 0 / 0 Other: Number of Voids 1 Number of Unmeasured Voids 1 1 Number of Bowel Movements 1 Weight 56.699 kg 58.088 kg 61.943 kg Patient Weight 09/22/22 23:59 Weight 61.943 kg Laboratory Results - last 24 hr 09/21/22 13:05: Sodium 135 L, Potassium 3.5, Chloride 102, Carbon Dioxide 32 H, Anion Gap 4.5 L, BUN 25 H, Creatinine 0.70, Estimated Creat Clear 40, Estimated GFR 81, Est GFR ( Amer) 97, Glucose 124 H, Calcium 7.8 L, Total Bilirubin 0.8, AST 40 H, ALT 32, Alkaline Phosphatase 63, Troponin I < 0.01, Total Protein 6.3, Albumin 3.4 L, Globulin 2.9, Albumin/Globulin Ratio 1.2 09/21/22 13:05: WBC 9.3 D, RBC 5.36, Hgb 15.8, Hct 46.2, MCV 86.1, MCH 29.5, MCHC 34.2, RDW 12.9, Plt Count 136 L, MPV 9.7, Neut % (Auto) 84.7 H, Lymph % (Auto) 6.8 L, [place] % (Auto) 8.2, Eos % (Auto) 0.0 L, Baso % (Auto) 0.3, Neut # (Auto) 7.8, Lymph # (Auto) 0.6 L, [place] # (Auto) 0.8, Eos # (Auto) 0.0, Baso # (Auto) 0.0 09/21/22 13:05: NT-Pro-B Natriuret Pep 1240 H 09/21/22 14:28: Urine Color Yellow, Urine Appearance Clear, Urine pH 6.0, Ur Specific [place] 1.025, Urine Protein 1+, Urine Glucose (UA) Negative, Urine Ketones 1+, Urine Blood 1+, Urine Nitrate Negative, Urine Bilirubin Negative, Urine Urobilinogen 2.0, Ur Leukocyte Esterase Negative, Urine RBC 3-5, Urine WBC Occasional, Ur Squamous Epith Cells 3-5, Urine Bacteria Trace, Urine Mucus 1+ 09/21/22 15:35: SARS-CoV-2 (PCR) Detected A, Influenza A Untype (PCR) Not detected, Influenza Type B (PCR) Not detected 09/22/22 06:24: WBC 5.1 D, RBC 4.65, Hgb 13.4 D, Hct 40.8, MCV 87.9, MCH 28.8, MCHC 32.8, RDW 13.0, Plt Count 122 L, MPV 9.4, Neut % (Auto) 72.6, Lymph % (Auto) 15.2, [place] % (Auto) 11.4 H, Eos % (Auto) 0.3, Baso % (Auto) 0.5, Neut # (Auto) 3.7, Lymph # (Auto) 0.8, [place] # (Auto) 0.6, Eos # (Auto) 0.0, Baso # (Auto) 0.0 09/22/22 06:24: Sodium 137, Potassium 2.8 L*, Chloride 106, Carbon Dioxide 30, Anion Gap 3.8 L, BUN 19 H, Creatinine 0.60, Estimated Creat Clear 44, Estimated GFR 96, Est GFR ( Amer) 116, Glucose 87 D, Calcium 6.9 L, Magnesium 2.4 H, Total Bilirubin 0.6, AST 29 D, ALT 21 D, Alkaline Phosphatase 49, Total Protein 5.1 L, Albumin 2.6 L D, Globulin 2.5, Albumin/Globulin Ratio 1.0 L I & O for Labs for Last 24 Hours: Intake & Output 09/19/22 09/20/22 09/21/22 09/22/22 23:59 23:59 23:59 23:59 Intake Total 0 / 0 240 / 240 Output Total 0 / 0 0 / 0 Balance 0 / 0 240 / 240 Weight 58.088 kg 61.943 kg Assessment and Plan *Assessment and plan (1) Pneumonia due to COVID-19 virus: Status: Acute Category: Medical Code(s): U07.1 - COVID-19; J12.82 - Pneumonia due to coronavirus disease 2019 (2) Failure to thrive: Status: Resolved Category: Medical (3) Thrombocytopenia: Status: Acute Category: Medical Code(s): D69.6 - Thrombocytopenia, unspecified (4) Hypokalemia: Status: Resolved Category: Medical Code(s): E87.6 - Hypokalemia (5) Hypokalemia: Status: Acute C
--- NOTE | 2022-09-22 08:17 | SW/DCPLANNER ---
Addendum entered by Randee De La Cruz 09/22/22 09:43: Nilsa foreman/ [facility] stated that she will be here at 11Am to speak with this patient. Nilsa is able to accept the patient at this time. I will update patient/family/MD. Original Note: I spoke with this patient and family member that was present in patient's room. Patient stated that she recently discharged home but was unable to care for herself and returned back to [facility]. Patient stated that she she will need short term rehab before she is able to return home. Patient resides in [place] but is only interested in [facility]. Patient information has been faxed to [facility] at this time. I will follow up with [facility] and [facility] regarding bed availability incase [facility] can not accept. I will continue to update patient, family and MD.
--- NOTE | 2022-09-22 09:50 | EXP.DC.SUM ---
General Admission date:: 09/21/22 Discharge date: 09/22/22 HPI HPI HPI: Ms. Garvey is a 82-year-old female with no past medical history and not on any prescription medications.? Was recently admitted and discharged yesterday for weakness and poor p.o. intake after being diagnosed with COVID 3 weeks ago. She was previously in the ER with the same symptoms on 09/17. Responded well last admission to IV fluids, was tolerating p.o. intake. PT evaluated her yesterday and she was able to stand with minimal assist and ambulate without assistive devices, just holding a hand. Niece who is with her felt comfortable taking her home. Patient felt better and was discharged home in stable condition. She Timmy presents to the ER today with inability to eat since being home. Complaining of persistent nausea. Still has not had a bowel movement (now 5 days). Denies fever, increased cough, confusion, chest pain or shortness of breath. Medicine consulted for admission for failure to thrive and further evaluation for possible placement. Of note, was able to take her oral antibiotics, but has not been able to take much else by mouth. Just states she feels sick Hospital Course Hospital Course Hospital Course: 82-year-old female with no past medical history, not on any prescription medications presents with increasing fatigue, weakness, poor oral intake and cough since being diagnosed with covid 3 weeks ago. Chest imaging concerning for pneumonia. Admitted for further management. Problems addressed as follows: - Covid Pneumonia Originally exposed to COVID little over 3 weeks ago. Testing positive for well over a week. Patient remains stable on room air with no cough. Main symptom is fatigue and poor appetite. Food does not taste good. Chest x-ray this admission with stable findings of bilateral airspace disease. Currently on empiric antibiotics, has received ceftriaxone during admission. Complete course of antibiotics with cefdinir per med rec. White cell count normal. Recommend isolation per facility protocol. - Failure to thrive Reports food tastes horrible since covid. Poor p.o. intake during admission. Encouraged here to try small bites regularly. Weight stable. Labs stable and within normal limits. Had a good bowel movement last night after an enema. Recommend continuing bowel regimen 1-2 times a day as needed for 1-2 soft stools daily. Noted vomiting during admission just nausea. Also recommend famotidine for gastritis/GERD component of her upset stomach and nausea. Seen by physical therapy, would benefit from rehab Patient also noted to have some thrombocytopenia, hypocalcemia, and hypokalemia.? Potassium and calcium replaced IV during admission. Recommend continuing daily oral potassium for repletion. No signs of bleeding. Platelets have remained stable during admission. Would benefit from repeat labs in a week with CBC and CMP. Stable for discharge to nursing facility for further rehab and nursing care. Does not have a PCP, request [facility] facilitate scheduling with PCP when patient stable for discharge. Patient interested in seeing Dr. Mosquera. Exam Data for Last 24 hours Vital signs and Labs for Last 24 Hours: Temp Pulse Resp BP Pulse Ox 98.8 F 79 17 156/74 H 90 L 09/22/22 07:13 09/22/22 07:13 09/22/22 07:13 09/22/22 07:13 09/22/22 07:13 Laboratory Results - last 24 hr 09/21/22 13:05: Sodium 135 L, Potassium 3.5, Chloride 102, Carbon Dioxide 32 H, Anion Gap 4.5 L, BUN 25 H, Creatinine 0.70, Estimated Creat Clear 40, Estimated GFR 81, Est GFR ( Amer) 97, Glucose 124 H, Calcium 7.8 L, Total Bilirubin 0.8, AST 40 H, ALT 32, Alkaline Phosphatase 63, Troponin I < 0.01, Total Protein 6.3, Albumin 3.4 L, Globulin 2.9, Albumin/Globulin Ratio 1.2 09/21/22 13:05: WBC 9.3 D, RBC 5.36, Hgb 15.8, Hct 46.2, MCV 86.1, MCH 29.5, MCHC 34.2, RDW 12.9, Plt Count 136 L, MPV 9.7, Neut % (Auto) 84.7 H, Lymph % (Auto) 6
[2022-09-22 09:53] VITALS: BMI 23.3
--- NOTE | 2022-09-22 10:30 | HMH.OTEV ---
OT Inpatient Evaluation Rehab OT IP Evaluation Start: 09/21/22 16:33 Freq: ONCE Status: Active Protocol: Document 09/22/22 10:10 ELIEZER (Rec: 09/22/22 10:30 ELIEZER [id number]) Rehab OT IP Assessment Subjective History Pt was seen resting in bed upon arrivial. Pt was oriented x1, name. Pt was agreeable to engage in therapy evaluation. Pt was admitted to [facility] on due to weakness, nausea, failure to thrive. Pt reports that she was independent in all ADLs and IADLs. Pt reports that she lives alone, and uses a rolling walker for functional mobility. She reports that she is still able to drive and complete grocery shopping tasks. Pt has a past medical history of the following: Cataracts, bilateral COVID-19 Pt was left resting in chair with call weber and all other needs within reach. Subjective I don't feel very good. Objective Patient Orientation Person Upper Extremity Gross ROM WNL Bed Mobility bed mobility-scooting,bed mobility - supine/sit Assist Level Independent Transfer Training Sit/Stand Transfer Assist Level Supervision/Stand by Chair Transfer Ability Supervision/Stand by Chair Transfer Assistive Devices Rolling Walker Feeding Ability Assist with Tray Set Up Performing Toilet Hygiene Ability Independent Overall Commode/Toilet Transfer Ability Standby Assistance decrease in endurance Yes Rehab OT IP prob,goals,plan Problems Date of Evaluation: 09/22/22 Rehab Potential Rehab Potential Innapropriate for Skilled Therapy Equipment Needs Assistive Devices Rolling / Wheeled Walker Discharge Plan OT Discharge Plan Pt is currently at her baseline and is independent in all ADLs, IADLs, and functional transfers. Upon discharge by physician, pt is safe to return home once stable. Eval Complexity Eval Charge Codes 60827 -
--- NOTE | 2022-09-22 10:38 | HMH.PTEV ---
Physical Therapy Evaluation Rehab PT IP Evaluation Start: 09/21/22 16:33 Freq: ONCE Status: Active Protocol: Document 09/22/22 10:35 PORFIRIO (Rec: 09/22/22 10:38 PORFIRIO [id number]) Subjective/History History History 82 yowf adm to [facility] with PNA and COVID+ status with generalized weakness. She reports she lives alone, 1-2 steps to enter the home, and she is generally independent with all mobility without AD at baseline. Subjective Subjective Pt has no other c/o than generally feeling unwell. Rehab PT IP Eval Objective Appearance Patient Behavior Appropriate Patient Orientation Person,Place,Time Difficulty following instructions none Speech Pattern Clear Ambulation Patient Able to Ambulate Yes Ambulation Observation IP General Gait Pattern Observation No Deviations/Normal Ambulation Distance (feet) 30 Ambulation Assistive Device None Ambulation Ability Independent Balance Ability to Arise Able, uses arms to help Sitting Balance Steady, safe Standing Balance Steady, wide stance Dynamic Sitting Balance Ability Good Dynamic Standing Balance Ability Good Transfers Bed Transfer Ability Independent Chair Transfer Ability Independent Sit to Stand Bed Transfer Ability Independent Sit to Stand Chair Transfer Ability Independent ROM All Extremities PT ROM Status WFL MMT All Extremities PT MMT WFL Rehab PT IP prob,goals,plan Problems Date of Evaluation: 09/22/22 Discharge Plan PT Discharge Plan Pt is currently independent with all mobility and is appropriate to transfer to rehab facility if necessary. She could return home once medically stable if she has assist available for home care . G -code Required No Eval Complexity Eval Charge Codes 86456 - Moderate Complexity PHYSICIAN CERTIFICATION: I certify the specified therapy services for Dorie Garvey are required, authorized, and reviewed every 30 days.
--- NOTE | 2022-09-23 12:46 | CARE MANAGER ---
Spoke with Chapis at [facility], who stated that patient is doing well. No issues or concerns with patient's transfer to their facility.
== END 2022-09-22 12:31 ==
LOC: ER 15:59 → 2ND 16:12
PROVIDERS: Admitting Provider Internal Medicine Adolescent Medicine; Emergency Provider Emergency Medicine; Visit Provider Internal Medicine Adolescent Medicine
DX: U07.1 COVID-19 (principal); J12.82 Pneumonia due to coronavirus disease 2019; D69.6 Thrombocytopenia, unspecified; E87.6 Hypokalemia; E83.51 Hypocalcemia; R06.9 Unspecified abnormalities of breathing; R62.7 Adult failure to thrive; Z68.23 Body mass index [BMI] 23.0-23.9, adult
CPT/HCPCS: G0378; 36415; 71046; 80053; 81001; 83735; 83880; 84484; 85025; 93005; 97162; 97165; 99285; C9803; J0696; J2405; U0003; U0005

== ENCOUNTER 2024-07-29 09:16 | Emergency (ER) | payer MEDICARE, BC, SELFPAY ==
[2024-07-29 09:38] LABS: Appearance,Urine CLEAR (Clear); Blood, Urine 3+ (Negative); Color,Urine YELLOW (Yellow); Glucose,Urine (UA) Negative (Negative); Ketones,Urine Negative (Negative); Leukocyte Esterase,Urine Negative (Negative); Nitrate,Urine Negative (Negative); Protein,Urine TRACE (Negative); Specific Gravity, Urine >= 1.030 (1.005-1.030)
[2024-07-29 09:39] LABS: Microscopic, Urine URINE MICROSCOPIC (MICROSCOPIC)
[2024-07-29 09:42] VITALS: BP 133/72; PULSE 83; RESP 16; TEMP 36.9; O2SAT 97; BMI 24.0
--- NOTE | 2024-07-29 09:42 | CT_ITS ---
FINAL REPORT TECHNIQUE: Thin section axial images were obtained through the abdomen after intravenous contrast. Reconstruction images were obtained from the axial data. Exam was performed using dose reduction techniques. CLINICAL HISTORY: LLQ abd pain COMPARISON: 09/18/2022 FINDINGS: The lung bases are clear. The liver is homogeneous. The gallbladder is present. The spleen and adrenal glands are unremarkable. There is mild dilation of the pancreatic duct, not present on the prior exam. Pancreas divisum is noted. There is no mass visualized in the pancreas. There are bilateral hypodense renal lesions which are stable in appearance, likely cysts. There is mild left hydronephrosis and hydroureter to the level of a 4 mm left UVJ stone. Abdominal GI tract is without acute abnormality. No small bowel obstruction is identified. There is no abdominal lymphadenopathy or ascites. The pelvic solid organs are unremarkable. The appendix is not visualized, however there are no secondary signs of inflammatory change. The pelvic portions of the GI tract are otherwise without acute abnormality. There is no pelvic lymphadenopathy or ascites. The uterus is present. 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 IMPRESSION: Mild left hydronephrosis and hydroureter to the level of a 4 mm left UVJ stone. Bilateral hypodense renal lesions, stable since the prior CT of 2022, likely cysts. Reviewed, Interpreted and Dictated by Jimena Jiang MD Transcribed by Donna Navarro Authenticated and [facility]
--- NOTE | 2024-07-29 09:43 | HMH.EDGENADL ---
Discharge Plan Disposition Patient Disposition: Home, Self-Care Prescriptions Prescriptions: New hydrocodone-acetaminophen 5-325 mg tablet 1 tab PO Q6H PRN (Reason: pain) 3 Days Qty: 12 0RF tamsulosin [Flomax] 0.4 mg capsule 0.4 mg PO DAILY 7 Days Qty: 7 0RF ibuprofen 600 mg tablet 600 mg PO Q8H PRN (Reason: pain) 7 Days Qty: 21 0RF ondansetron 4 mg tablet,disintegrating 4 mg PO Q6H PRN (Reason: nausea and vomiting) 5 Days Qty: 20 0RF Referrals Follow up/Referrals: Grant Mosquera MD [Primary Care Provider] - See instructions Activity Restrictions/Add. Instructions Additional Instructions/Restrictions: You have a 4 mm stone at the distal junction of the ureter and the bladder. This is almost certain to pass. However if you have refractory symptoms please schedule an appointment with a urologist. Again we do not have one here at [facility] that can intervene upon this if needed. If you develop any high fevers please return as well. Lastly with regards to the cocktail of medicines that you have been prescribed if you are concerned about falling please do not take the Flomax and the [place]. The Flomax is specifically used to relax smooth muscles and may help with stone expulsion and the Glenwood's for refractory pain but both of those can cause lightheadedness and make you fall so please be careful with those. Clinical Impressions Clinical Impression: Hydronephrosis concurrent with and due to calculi of kidney and ureter Instructions Patient Instructions: DI for Acute Abdominal Pain Print Language Print Language: [place]gu[place] Discharge ED Provider: Micki Rivera General Adult HPI General Chief complaint: Abdominal Pain Stated complaint: adbm pain and nausea Time Seen by Provider: 07/29/24 09:38 History of Present Illness HPI narrative: 84-year-old female presents today with left lower quadrant abdominal pain has been intermittent but now constant over the last 3 days. She denies any changes in bowel movements including diarrhea or blood in her stool however she has had some mild urinary urgency. But otherwise no frequency dysuria hematuria etc. She has a very healthy 84-year-old no significant past medical history has not had abdominal surgeries. No history of diverticulitis that she is aware of. No history of colonic abnormalities and she has never had a colonoscopy before in the past. Related Data Previous Rx's ?Medication ?Instructions ?Recorded hydrocodone 5 mg-acetaminophen 325 1 tab PO Q6H PRN pain 3 days #12 07/29/24 mg tablet tabs ibuprofen 600 mg tablet 600 mg PO Q8H PRN pain 7 days #21 07/29/24 tabs ondansetron 4 mg disintegrating 4 mg PO Q6H PRN nausea and 07/29/24 tablet vomiting 5 days #20 tabs tamsulosin 0.4 mg capsule (Flomax) 0.4 mg PO DAILY 7 days #7 caps 07/29/24 Allergies Allergy/AdvReac Type Severity Reaction Status Date / Time No Known Allergies Allergy Verified 07/29/24 09:41 [facility] Disclaimer: The information contained in this section may have been updated after the patient was seen, as this information can be updated by other users. Medical History Cataracts, bilateral COVID-19 Surgical History Cornea replaced by transplant Social History (Updated 09/21/22 @ 16:30 by Shobha Roger RN) Smoking Status: Never smoker alcohol intake: never current occupational status: retired and other Travel in the last 8 weeks: None adopted: No caregiver/support person: Yes (TONNY LEWIS) foster care: No household members: none housing: house lives independently: Yes marital status: single number of children: 0 number of grandchildren: 0 education level: high school service: No retirement: No current occupational exposures/hazards: No pets and animals: No leisure activities: reading sexually active: No Have you lived/traveled outside [place] in past 30 days?: No Contact w/someone who lives/traveled outside [place] past 30 days?: No Exposure to someone with infectious disease in past 14 days?: No Do you have a fever (greater than 100.4 F or 38 C)?: No Have you tested positive for COVID-19: No Exposed to someone with COVID-19 in past 14 days?: No Do you have a sore throat?: No Do you have a cough?: Yes Do you have any weakness?: No Do you have any diarrhea?: No Are you experiencing any unusual bleeding?: No Do you have any muscle aches/pain?: Yes Do you have any abdominal pain?: Yes Are you experiencing loss of taste or smell?: No Other Medical History Have you received the Flu Vaccine for this season: No Have you received the Pneumonia Vaccine: No ROS Obtained: Yes All systems reviewed & no additional complaints except as documented Physical Exam General General appearance: alert and in no apparent distress Respiratory Respiratory exam: Present normal lung sounds bilaterally Cardiovascular Cardiovascular exam: Present regular rate Abdominal Exam Abdominal exam: Present soft and tenderness (Left mid abdomen left lower quadrant tenderness to palpation but otherwise soft no rebound or guarding) Neurological Exam Neurological exam: Present alert and oriented X3 Medical Decision Making Medical Records Screening: Per USPSTF and CDC recommendations, given the prevalence of disease in our region, it is our hospital?s policy to screen for HIV and viral Hepatitis for all patients aged 18 and over and those with ongoing risk factors. Geovani Inquiry Pt receiving controlled substance: No Vital Signs: 07/29/24 09:42 07/29/24 10:00 07/29/24 10:30 Temperature 98.4 F Temperature Source Oral Pulse Rate 75 72 Pulse Rate [Right Brachial] 83 Respiratory Rate 16 Blood Pressure 108/74 L 170/77 H Blood Pressure [Right Arm] 133/72 Blood Pressure Mean [Right Arm] 92 Blood Pressure Source [Right Arm] Automatic Cuff Blood Pressure Position [Right Arm] Sitting 02 Sat by Pulse Oximetry 97 94 L 99 Oxygen Delivery Method Room Air Room Air Room Air 07/29/24 11:00 Temperature Temperature Source Pulse Rate 68 Pulse Rate [Right Brachial] Respiratory Rate Blood Pressure 142/63 H Blood Pressure [Right Arm] Blood Pressure Mean [Right Arm] Blood Pressure Source [Right Arm] Blood Pressure Position [Right Arm] 02 Sat by Pulse Oximetry 99 Oxygen Delivery Method Room Air Lab Data Lab results reviewed: Yes I reviewed the patient's lab results. Lab Results 07/29/24 09:30: Urine Color Yellow, Urine Appearance Clear, Urine pH 6.0, Ur Specific [place] >= 1.030, Urine Protein Trace, Urine Glucose (UA) Negative, Urine Ketones Negative, Urine Blood 3+ A, Urine Nitrate Negative, Urine Bilirubin 1+ A, Urine Urobilinogen 1.0, Ur Leukocyte Esterase Negative, Urine RBC 10-20, Urine WBC None, Ur Squamous Epith Cells 5-10, Other Sediment Comment, Urine Bacteria 1+ 07/29/24 09:38: WBC 7.6, RBC 5.37, Hgb 15.4, Hct 48.0 H, MCV 89.4, MCH 28.7, MCHC 32.1, RDW 12.6, Plt Count 213, MPV 10.0, Neut % (Auto) 73.2, Lymph % (Auto) 17.5, [place] % (Auto) 8.4, Eos % (Auto) 0.1, Baso % (Auto) 0.4, Neut # (Auto) 5.6, Lymph # (Auto) 1.3, [place] # (Auto) 0.6, Eos # (Auto) 0.0, Baso # (Auto) 0.0, Sodium 140, Potassium 3.7, Chloride 102, Carbon Dioxide 29, Anion Gap 12.7, BUN 21 H, Creatinine 0.80, Estimated Creat Clear 43, Estimated GFR 69, Est GFR ( Amer) 83, Glucose 109 H, Calcium 9.1, Total Bilirubin 0.8, AST 31, ALT 18, Alkaline Phosphatase 102, Total Protein 7.1 D, Albumin 4.0, Globulin 3.1, Albumin/Globulin Ratio 1.3, Lipase 302 H, HIV Ag/Ab Combo Qual Negative 07/29/24 09:38 07/29/24 09:38 Orders (Tests/Meds): ED MEDICATIONS Discontinued Medications Generic Name Dose Route Start Last Admin Trade Name Yasirq PRN Reason Stop Dose Admin Lactated Ringer's 1,000 mls @ 999 mls/hr 07/29/24 09:45 07/29/24 09:49 Lactated Ringer's 1000 Ml Bag IV 07/29/24 10:45 999 mls/hr .Q1H1M FREDI Administration Iopamidol 75 ml 07/29/24 10:21 07/29/24 10:22 Iopamidol-370 (76%);100ml Bottle IV 07/29/24 10:22 75 ml ONCE ONE Administration Morphine Sulfate 2 mg 07/29/24 09:42 07/29/24 09:51 Morphine 4mg/Ml Syringe IV 07/29/24 09:43 2 mg ONCE ONE Administration Ondansetron HCl 4 mg 07/29/24 09:42 07/29/24 09:51 Ondansetron 4mg/2ml Vial IV 07/29/24 09:43 4 mg ONCE ONE Administration Sodium Chloride 10 ml 07/29/24 10:21 07/29/24 10:22 Sodium Chloride 0.9% 10ml Syr (Rad Only) IV 07/29/24 10:22 10 ml ONCE ONE Administration ORDERS Category Date Time Status CT abdomen pelvis w con Stat Cat Scan 07/29/24 09:42 Taken CBC w/Auto Diff [Complete Blood Count Auto Diff] Stat Lab 07/29/24 09:38 Completed CMP [Comprehensive Metabolic Panel] Stat Lab 07/29/24 09:38 Completed HIV Combo Stat Lab 07/29/24 09:38 Completed Hep C Ab with Reflex to RNA Stat Lab 07/29/24 09:38 Received Lactic Acid Stat Lab 07/29/24 09:42 Ordered Lipase Stat Lab 07/29/24 09:38 Completed UA [Urinalysis and Microscopic] Stat Lab 07/29/24 09:30 Completed Medical Decision Narrative: 84-year-old with above history and physical with tenderness and pain in the left lower quadrant has been intermittent now constant. Leading on the differential would be diverticulitis but other colonic pathology is on the differential as well as including malignancy, inflammatory colitis, ischemic colitis, constipation, kidney stone, urinary tract infection etc. Will get a CT scan with contrast and administer IV fluids pain medicine nausea medicine will reassess Reassessment 1133 patient feeling much better serial exams benign CT scan was performed which I personally interpreted which shows a 4 mm distal ureteral stone with hydronephrosis and hematuria no evidence of infection or sepsis no refractory pain patient discharged with supportive care medications and advised to follow-up with the urologist if she has refractory symptoms or return to the Emergency Department with any evidence of fever or refractory symptoms well. Critical Care Critical Care Time Critical Care Time: No
[2024-07-29 09:44] LABS: Bilirubin,Urine 1+ (Negative)
[2024-07-29] MEDS: LACTATED RINGERS 1000ML 1,000 ML 999 ML IV (09:49)
[2024-07-29] MEDS: ONDANSETRON 4MG/2ML VIAL 4 MG IV (09:51)
[2024-07-29] MEDS: MORPHINE 4MG/ML SYRINGE 2 MG IV (09:51)
[2024-07-29 09:53] LABS: Basophils % 0.4 % (0.1-2.0); Eosinophils % 0.1 % (0.1-12.0); Hemoglobin 15.4 g/dL (12.2-16.2); Lymphocytes # 1.3 K/mm3 (0.7-4.5); Lymphocytes % 17.5 % (10-50); Mean Corpuscular HGB Conc 32.1 g/dL (31.8-35.4); Mean Corpuscular Hemoglobin 28.7 pg (27.0-31.2); Mean Corpuscular Volume 89.4 fl (81-99); Monocytes # 0.6 K/mm3 (0.1-1.0); Monocytes % 8.4 % (1.7-9.3); Neutrophils # 5.6 K/mm3 (1.8-7.8); Neutrophils % 73.2 % (37.0-80.0); Platelet Count 213 K/mm3 (142-424); Red Blood Count 5.37 M/mm3 (4.20-5.40); Red Cell Distribution Width 12.6 % (11.5-17.5); White Blood Count 7.6 K/mm3 (4.8-10.8)
[2024-07-29 09:56] LABS: Chloride 102 mmol/L (98-107); Potassium 3.7 mmoL/L (3.5-5.1); Sodium 140 mmol/L (136-145)
[2024-07-29 09:58] LABS: Blood Urea Nitrogen 21 mg/dl (7-17); Creatinine Clearance Estimated 43 mL/min (50-200); Estimated Glomerular Filt Rate 69 ml/min (>60); GFR (African American) 83 ML/MIN (>60)
[2024-07-29 09:59] LABS: Alanine Aminotransferase 18 U/L (12-78); Albumin/Globulin Ratio 1.3 (1.1-1.8); Alkaline Phosphatase 102 U/L (38-126); Anion Gap 12.7 mEq/L (5-15); Aspartate Amino Transferase 31 U/L (14-36); Bilirubin,Total 0.8 mg/dl (0.2-1.3); Calcium 9.1 mg/dl (8.4-10.2); Carbon Dioxide 29 mmol/L (22.0-30.0); Globulin 3.1 g/dL (1.3-3.2); Glucose 109 mg/dl (74-100); Lipase 302 U/L (23-300); Total Protein,Serum 7.1 g/dl (6.3-8.2)
[2024-07-29 10:00] VITALS: BP 108/74; PULSE 75; O2SAT 94
[2024-07-29 10:02] LABS: Bacteria,Urine 1+ /lpf
--- NOTE | 2024-07-29 10:08 | PC.NURSE ---
pt placed on 2L O2 per Dr. Rivera due to receiving pain medication. Her O2 dropped to 87% on RA after the medication.
--- NOTE | 2024-07-29 10:19 | PC.NURSE ---
Patient to radiology
[2024-07-29] MEDS: IOPAMIDOL-370 (76%);100ML BOTTLE 75 ML IV (10:22)
[2024-07-29] MEDS: SODIUM CHLORIDE 0.9% 10ML SYR (RAD ONLY) 10 ML IV (10:22)
[2024-07-29 10:30] VITALS: BP 170/77; PULSE 72; O2SAT 99
[2024-07-29 11:00] VITALS: BP 142/63; PULSE 68; O2SAT 99
[2024-07-29 11:16] LABS: HIV Combo NEGATIVE (Negative)
[2024-07-29 11:44] VITALS: BP 147/68; PULSE 78; RESP 18; TEMP 36.7; O2SAT 98
[2024-07-30 06:10] LABS: HCV Ab Non Reactive (Non Reactive)
== END 2024-07-29 11:46 | disposition home or self-care (01) ==
PROVIDERS: Emergency Provider Student in an Organized Health Care Education/Training Program; PCP Internal Medicine
DX: N13.2 Hydronephrosis with renal and ureteral calculous obstruction (principal); R10.32 Left lower quadrant pain; R39.15 Urgency of urination; R11.0 Nausea
CPT/HCPCS: 74177; 80053; 81001; 83690; 85025; 86803; 87389; 96361; 96374; 96375; 99285; J2270; J2405; J7120; Q9967